=== PATIENT | male | born 1965 | race Caucasian/White ===

== ENCOUNTER 2024-08-25 16:04 | Emergency (ER) | payer OTHER ==
[~2024-08-25] VITALS: Ht 172.7 cm; Wt 72.0 kg
[2024-08-25] MEDS: KETOROLAC 15MG/ML VIAL IV ONE (01:16)
[2024-08-25 16:40] VITALS: PULSE 116; RESP 20; O2SAT 95
[2024-08-25] MEDS: ALBUTEROL (0.083%) 2.5MG/3ML NEB HHN STA (16:40)
[2024-08-25] MEDS: IPRATROPIUM BROMIDE (0.02%) 0.5MG/2.5ML NEB HHN STA (16:40)
[2024-08-25 16:41] VITALS: TEMP 37.11408
[2024-08-25] MEDS: PREDNISONE 20MG TABLET PO STA (16:41)
[2024-08-25 17:16] LABS: CHLORIDE 96 mEq/L (98-107); POTASSIUM 3.7 mEq/L (3.5-5.1); SODIUM 131 mEq/L (136-145)
[2024-08-25 17:17] LABS: CARBON DIOXIDE 26 mEq/L (21-32)
[2024-08-25 17:22] LABS: CREATININE 1.1 mg/dL (0.6-1.3); GLUCOSE 62 mg/dL (70-105); UREA NITROGEN BLOOD 25 mg/dL (9-23)
[2024-08-25 17:24] LABS: BASOPHILS % 0.2 % (0.0-2.0); EOSINOPHILS % 0.6 % (0.0-5.0); HEMATOCRIT. 46.1 % (42.0-52.0); HEMOGLOBIN. 14.5 g/dL (14.0-18.0); LYMPHOCYTES % 15.3 % (20.0-50.0); MEAN CORPUSCULAR HEMOGLOBIN 27.7 pg (28.0-32.0); MEAN CORPUSCULAR HGB CONC 31.3 g/dL (31.0-37.0); MEAN CORPUSCULAR VOLUME 88.5 fL (80.0-94.0); MEAN PLATELET VOLUME 9.2 fl (7.4-10.4); MONOCYTES % 14.9 % (2.0-8.0); PLATELET 290 x1000/uL (130-400); RED BLOOD CELL COUNT 5.21 mill/uL (4.7-6.1); RED CELL DISTRIBUTION WIDTH 17.8 % (11.6-14.6); WHITE BLOOD COUNT 9.4 x1000/uL (4.5-11.0)
[2024-08-25 17:29] LABS: CALCIUM 19.3 mg/dL (8.7-10.4)
[2024-08-25] MEDS: CEFTRIAXONE 1GM/50ML 50 ML IV ONE (17:39)
[2024-08-25] MEDS: SODIUM CHLORIDE 0.9% 1,000 ML IV ONE (17:39)
[2024-08-25] MEDS: SODIUM CHLORIDE 0.9% 500 ML IV ONE (17:39)
[2024-08-25 17:58] LABS: LACTIC ACID 2.9 mmol/L (0.4-2.0)
[2024-08-25] MEDS: AZITHROMYCIN 500MG/250ML 250 ML IV ONE (18:00)
[2024-08-25] MEDS ORDERED: ACETAMINOPHEN 650MG/20.3ML UDC GT PRN (19:30)
[2024-08-25] MEDS ORDERED: ACETAMINOPHEN 325MG TABLET PO PRN ×2 (19:30)
[2024-08-25] MEDS ORDERED: IPRATROPIUM/ALBUTEROL 0.5-3(2.5)MG/3ML NEB HHN PRN (19:30)
[2024-08-25] MEDS ORDERED: ONDANSETRON HCL 4MG/2ML INJ IV PRN ×2 (19:30→21:15)
[2024-08-25 20:48] LABS: TROPONIN I HIGH SENSITIVITY 20 ng/L (3.0-53)
[2024-08-25 20:50] LABS: PHOSPHORUS 3.3 mg/dL (2.5-4.9)
[2024-08-25] MEDS ORDERED: DOCUSATE SODIUM 100MG CAPSULE PO PRN (21:15)
[2024-08-25] MEDS ORDERED: GUAIFENESIN 200MG/10ML SUGAR FREE UDC PO PRN (21:15)
[2024-08-25] MEDS ORDERED: MAGNESIUM/ALUMINUM HYDROXIDE/SIMETHICONE 30ML UDC PO PRN (21:15)
[2024-08-25] MEDS ORDERED: CLONIDINE 0.1MG TABLET PO PRN (21:15)
[2024-08-25] MEDS: SODIUM CHLORIDE 0.9% 1,000 ML IV SCH (21:21)
[2024-08-25] MEDS: FAMOTIDINE 20MG TABLET PO SCH (21:22)
[2024-08-25] MEDS: MAGNESIUM 2 G PREMIX 50 ML IV NR (21:38)
[2024-08-25 21:56] VITALS: PULSE 91; RESP 16; O2SAT 98
[2024-08-25] MEDS: IPRATROPIUM/ALBUTEROL 0.5-3(2.5)MG/3ML NEB HHN SCH (21:56)
[2024-08-26] MEDS: IOHEXOL-350 100 ML BOTTLE ONE (00:14)
[2024-08-26] MEDS: KETOROLAC 15MG/ML VIAL IV SCH (00:30)
[2024-08-26 03:13] VITALS: TEMP 98.8
[2024-08-26 05:57] VITALS: BP 166/75; PULSE 91; RESP 18; O2SAT 94
[2024-08-26] MEDS ORDERED: MULTIVITAMINS,THER W-MINERALS TABLET PO SCH (09:00)
[2024-08-26] MEDS ORDERED: ENOXAPARIN 40MG/0.4ML SYR SUBCUT SCH (09:00)
[2024-08-26] MEDS ORDERED: CEFTRIAXONE 2GM/50ML 50 ML IV SCH (17:00)
[2024-08-26] MEDS ORDERED: AZITHROMYCIN 500MG/250ML 250 ML IV SCH (18:00)
== END 2024-08-26 06:02 | disposition short-term general hospital (02) ==
LOC: ER 16:04 → EDBEDREQ 16:25 → ER 08-26 06:02
DX: C78.00 Secondary malignant neoplasm of unspecified lung (principal); J45.909 Unspecified asthma, uncomplicated; D50.9 Iron deficiency anemia, unspecified; E83.42 Hypomagnesemia; F17.210 Nicotine dependence, cigarettes, uncomplicated; Z85.828 Personal history of other malignant neoplasm of skin; Z20.822 Contact with and (suspected) exposure to COVID-19
CPT/HCPCS: 80048; 82330; 83880; 83605; 83735; 84100; 85025; 85379; 87040; 84484; 87070; 87804 ×2; 36415; 84145; 71045; 71275; 94640; 93005; 96367; 96365; 96366; 96375; 99285; 87426; Q9967; J7512; J0456; J0696; J3475; Z7610 ×9; J7040; J7030; J1885